=== PATIENT | female | born 1995 | race Caucasian/White ===

== ENCOUNTER 2025-01-27 00:22 | Emergency (ER) | payer MEDICAID ==
[~2025-01-27] VITALS: Ht 160 cm; Wt 64.0 kg
[2025-01-27 00:26] VITALS: TEMP 98.2
[2025-01-27 01:55] VITALS: BP 137/74; PULSE 111; RESP 22; O2SAT 100
[2025-01-27 03:01] LABS: PLATELET COUNT (AUTO) 160 K/uL (150-450); RED BLOOD CELL COUNT(AUTO) 4.49 MIL/uL (4.00-5.20); RED CELL DISTRIBUTION WIDTH 13.6 % (11.5-14.5); WHITE BLOOD COUNT (AUTO) 13.1 K/uL (4.5-11.0)
[2025-01-27 03:10] LABS: CALCIUM, TOTAL 8.2 mg/dL (8.8-10.5); CREATININE 0.89 mg/dL (0.60-1.30); GLOMERULAR FILTR. RATE CALC > 60 mL/min (>60); GLUCOSE,RANDOM 133 mg/dL (70-110); SODIUM SERUM 137 mmol/L (136-145); UREA NITROGEN, BLOOD 9 mg/dL (7-18)
[2025-01-27] MEDS: SODIUM CHLORIDE 0.9% 1,000 ML IV ONE (03:28)
[2025-01-27] MEDS: ONDANSETRON HCL 4 MG/2 ML VIAL IVP ONE (03:28)
[2025-01-27 04:02] LABS: ASPARTATE AMINOTRANSFERASE 23.0 U/L (15-37); TOTAL PROTEIN, SERUM 7.2 g/dL (6.4-8.2)
== END 2025-01-27 03:45 | disposition admitted as inpatient to this hospital (09) ==
LOC: EMS 00:24
DX: S02.91XA Unspecified fracture of skull, initial encounter for closed fracture (principal); S02.40CA Maxillary fracture, right side, initial encounter for closed fracture; M79.672 Pain in left foot; W06.XXXA Fall from bed, initial encounter; Y93.89 Activity, other specified; Y92.89 Other specified places as the place of occurrence of the external cause; Y99.8 Other external cause status
CPT/HCPCS: 99291; 70450; 96374; 80048; 80076; 84703; 85025; 86850; 86900; 86901; 36415; 73630; 70486; 72125; J2405; J7030; 96361